=== PATIENT | male | born 1990 | race Caucasian/White ===

== ENCOUNTER 2018-07-04 09:10 | Emergency (ER) | payer BC ==
[~2018-07-04] VITALS: Ht 167.6 cm; Wt 81.2 kg
[2018-07-04 09:33] VITALS: Ht 167.6 cm; Wt 81.2 kg
[2018-07-04 10:37] VITALS: BP 130/87
== END 2018-07-04 10:37 | disposition home or self-care (01) ==
LOC: ED 09:10
DX: M54.2 Cervicalgia (principal); M54.5 Low back pain; V42.5XXA Car driver injured in collision with two- or three-wheeled motor vehicle in traffic accident, initial encounter; Y93.I9 Activity, other involving external motion; Y92.413 State road as the place of occurrence of the external cause; Y99.8 Other external cause status
CPT/HCPCS: J1885